=== PATIENT | female | born 1945 | race Caucasian/White ===

== ENCOUNTER → 2017-05-14 15:32 | Outpatient (CLI) | payer MEDICARE ==
[2013-12-08 07:54] VITALS: BMI 34.8
[~2017-05-14 15:32] MED LIST: ASCORBIC ACID500 MG PO; BAYER CHEWABLE81 MG PO; CALCIUM 600+D T1 TA1 PO; CENTRUM COMPLE1 EACH PO; HYZAAR 50-12.51 TAB PO; K-DUR20 MEQ PO; LASIX40 MG PO; OMEGA-3100 MG PO; PRAVACHOL80 MG PO; PRILOSEC20 MG PO; SLOW-MAG 64 MG64 MG PO; TENORMIN50 MG PO
== END | disposition home or self-care (01) ==
LOC: D.CT 15:32
DX: R10.11 Right upper quadrant pain (principal)

== ENCOUNTER 2017-10-20 01:56 | Emergency (ER) | payer MEDICARE ==
[2013-12-08 07:54] VITALS: BMI 34.8
[2017-10-20 02:51] LABS: APPEARANCE CLEAR (CLEAR); COLOR YELLOW (YELLOW)
[2017-10-20 02:52] LABS: BILIRUBIN NEGATIVE (NEGATIVE); GLUCOSE NEGATIVE (NEGATIVE); KETONE NEGATIVE (NEGATIVE); NITRITE NEGATIVE (NEGATIVE); PROTEIN NEGATIVE (NEGATIVE); UROBILINOGEN NORMAL (NORMAL)
[2017-10-20 03:02] LABS: BASOPHILS 0.6 % (0-2); EOSINOPHILS 4.8 % (0-7); HEMATOCRIT 42.7 % (36.0-48.0); HEMOGLOBIN 13.8 g/dL (12-16); IMMATURE GRANULOCYTES 0.3 % (0-5); LYMPHOCYTES 23.1 % (15-50); MCH 32.2 pg (26.0-34.0); MCHC 32.3 g/dL (31.0-37.0); MCV 99.5 fL (80.0-100.0); MEAN PLATELET VOLUME 9.7 fL (7.4-10.4); MONOCYTES 7.2 % (2-11); PLATELET COUNT 225 10x3/uL (130-400); RBC 4.29 10x6/uL (4.00-5.40); RDW 13.4 % (11.5-14.5)
[2017-10-20 03:43] LABS: ALBUMIN 3.6 g/dL (3.4-5.0); ALKALINE PHOSPHATASE 112 U/L (46-116); ALT (SGPT) 26 U/L (10-68); CALC OSMOLALITY 284 mosm/kg (275-300); CALCIUM 9.7 mg/dL (8.5-10.1); CARBON DIOXIDE 31.2 mmol/L (21.0-32.0); CHLORIDE - SERUM 102 mmol/L (98-107); CKMB 0.9 U/L (0.0-3.6); CREATINE KINASE 84 UL (21-215); CREATININE - SERUM 0.4 mg/dL (0.6-1.3); GLUCOSE 116 mg/dL (74-106); MAGNESIUM - SERUM 1.9 mg/dL (1.8-2.4); POTASSIUM - SERUM 4.4 mmol/L (3.5-5.1); PROTEIN - SERUM 7.5 g/dL (6.4-8.2); SODIUM 142 mmol/L (136-145); TROPONIN-I < 0.017 ng/mL (0.000-0.060); UREA NITROGEN 16 mg/dL (7-18); eGFR NON AFRICAN AMERICAN > 90 mL/min (90-120)
== END 2017-10-20 05:00 | disposition home or self-care (01) ==
LOC: D.ER 01:56
PROVIDERS: Family Medicine
DX: G62.9 Polyneuropathy, unspecified (principal); I45.10 Unspecified right bundle-branch block

== ENCOUNTER → 2021-04-26 12:26 | Outpatient (CLI) | payer MEDICARE ==
[~2021-04-26] VITALS: Ht 157.5 cm; Wt 88.6 kg
[2021-04-26 13:29] VITALS: Ht 157.5 cm; Wt 88.6 kg
== END | disposition home or self-care (01) ==
LOC: D.OPS 12:26
PROVIDERS: ATTEND Nurse Practitioner Family
DX: M81.0 Age-related osteoporosis without current pathological fracture (principal)